=== PATIENT | male | born 1970 | race Caucasian/White ===

== ENCOUNTER → 2016-04-27 | Outpatient (CLI) | payer OTHER ==
[2016-04-27 14:28] LABS: CH 31.8; CHCM 35.2; HCT 47.7 % (39.0-53.0); HDW 3.19; HGB 16.4 gm/dL (13.0-17.5); MCH 31.3 pg (25.0-35.0); MCHC 34.5 g/dL (31.0-37.0); MCV 90.7 fL (80.0-100.0); Mean Platelet Volume 6.1; RBC 5.25 m/uL (4.30-5.90); RDW 13.2 % (11.5-15.5); WBC 11.6 k/uL (3.8-10.6)
[2016-04-27 15:11] LABS: Appearance,Urine Clear (Clear); Bilirubin,Urine Negative (Negative); Glucose,Urine (UA) Negative (Negative); Ketones,Urine Negative (Negative); Leukocyte Esterase,Urine Negative (Negative); Nitrite,Urine Negative (Negative); PH, Urine 5.5 (5.0-8.0); Protein,Urine Negative (Negative); Specific Gravity,Urine 1.001 (1.001-1.035); UA Billing (MACRO vs. MICRO) CHEM; Urobilinogen,Urine <2.0 mg/dL (<2.0)
== END | disposition home or self-care (01) ==
LOC: LABWHC1 14:02
PROVIDERS: ATTEND Internal Medicine
DX: N39.0 Urinary tract infection, site not specified (principal)
CPT/HCPCS: 36415; 81003; 85027

== ENCOUNTER → 2016-05-19 | Outpatient (CLI) | payer OTHER ==
--- NOTE | 2016-05-19 16:02 | US ---
EXAMINATION TYPE: US kidneys/renal and bladder DATE OF EXAM: 05/19/2016 3:09 PM COMPARISON: NONE CLINICAL HISTORY: R10.9 Flank pain. EXAM MEASUREMENTS: Right Kidney: 9.3 x 4.9 x 6.2 cm Left Kidney: 10.5 x 5.1 x 5.4 cm cm no gross abnormaility indentified Right Kidney: No hydronephrosis or masses seen Left Kidney: No hydronephrosis or masses seen Bladder: distended Bilateral Jets seen: right jet only There is no evidence for hydronephrosis at this point in time. No nephrolithiasis is seen. No betzaida s are identified. The urinary bladder is anechoic. Bilateral ureteral jets are seen. IMPRESSION: No distinct abnormality seen.
== END | disposition home or self-care (01) ==
LOC: RADUSWWP 14:48
PROVIDERS: ATTEND Internal Medicine
DX: R10.9 Unspecified abdominal pain (principal)
CPT/HCPCS: 76770

== ENCOUNTER → 2017-01-13 | Outpatient (CLI) | payer OTHER ==
[2017-01-13 15:15] LABS: CH 31.8; CHCM 35.1; HCT 43.9 % (39.0-53.0); HGB 15.6 gm/dL (13.0-17.5); MCH 32.5 pg (25.0-35.0); MCHC 35.7 g/dL (31.0-37.0); Mean Platelet Volume 6.2; RBC 4.82 m/uL (4.30-5.90); RDW 13.2 % (11.5-15.5); WBC 6.3 k/uL (3.8-10.6)
[2017-01-13 17:32] LABS: ALT 70 U/L (21-72); AST 37 U/L (17-59); Alkaline Phosphatase 63 U/L (38-126); Anion Gap 8 mmol/L; Blood Urea Nitrogen 15 mg/dL (9-20); Calcium 9.9 mg/dL (8.4-10.2); Carbon Dioxide 26 mmol/L (22-30); Chloride 106 mmol/L (98-107); Cholesterol 209 mg/dL (<200); Glucose 77 mg/dL (74-99); HDL Cholesterol 54 mg/dL (40-60); Non-African American GFR(MDRD) >60 (>60 ml/min/1.73 sqM); Potassium 4.2 mmol/L (3.5-5.1); Sodium 140 mmol/L (137-145); Total Bilirubin 0.7 mg/dL (0.2-1.3); Total Protein 7.2 g/dL (6.3-8.2)
[2017-01-13 18:04] LABS: Prostate Specific Antigen 1.75 ng/mL (0.00-4.00)
== END | disposition home or self-care (01) ==
LOC: LABWHC1 14:41
PROVIDERS: ATTEND Internal Medicine
DX: Z00.00 Encounter for general adult medical examination without abnormal findings (principal); E78.2 Mixed hyperlipidemia
CPT/HCPCS: 36415; 80053; 80061; 82272; 84153; 84439; 84443; 85027

== ENCOUNTER → 2017-09-30 | Outpatient (CLI) | payer OTHER ==
[2017-09-30 11:43] LABS: ALT 52 U/L (21-72); AST 27 U/L (17-59); Cholesterol 128 mg/dL (<200); Creatine Kinase 85 U/L (55-170); HDL Cholesterol 43 mg/dL (40-60); LDL Cholesterol,Calculated 71 mg/dL (0-99); Triglycerides 71 mg/dL (<150)
== END | disposition home or self-care (01) ==
LOC: LABWHC1 10:19
PROVIDERS: ATTEND Internal Medicine
DX: E78.2 Mixed hyperlipidemia (principal)
CPT/HCPCS: 36415; 80061; 82550; 84450; 84460

== ENCOUNTER 2017-10-11 16:33 | Observation (INO) | payer OTHER ==
[2017-10-11] MEDS ORDERED: ASPIRIN 81 MG PO STA (17:29)
[2017-10-11] MEDS ORDERED: NITROGLYCERIN OINT 1 INCH/GM PACKET TOPICAL STA (17:29)
--- NOTE | 2017-10-11 17:32 | ED ---
Chest Pain HPI - General Chief Complaint: Chest Pain Stated Complaint: Chest tightness Time Seen by Provider: 10/11/17 17:24 Source: patient Mode of arrival: ambulatory Limitations: no limitations - History of Present Illness Initial Comments: This 47-year-old white male presents with a complaint of some midsternal and left-sided chest pain/pressure. He states that this is been intermittent over the past 3 weeks. It seems to be worse during the week and better on the weekend when he is relaxing. It is not exertionally related. He denies any shortness of breath. There is no radiation. He denies any leg pain, swelling, history of DVT, or history of PE. He denies any known previous cardiac history. He does not smoke but does drink on occasion. He does relate that his uncle had a heart attack but no other family history. He's never had a stress test. No other complaints or modifying factors. He does not have any pain currently. He saw his primary care physician today and they sent him to the ER for further evaluation and treatment. - Related Data Home Medications Medication Instructions Recorded Confirmed Aspirin EC [Ecotrin Low Dose] 81 mg PO DAILY 10/11/17 10/11/17 Atorvastatin [Lipitor] 10 mg PO DAILY 10/11/17 10/11/17 Allergies Allergy/AdvReac Type Severity Reaction Status Date / Time No Known Allergies Allergy Verified 10/11/17 17:33 Review of Systems ROS Statement: Those systems with pertinent positive or pertinent negative responses have been documented in the HPI. ROS Other: All systems not noted in ROS Statement are negative. Past Medical History Past Medical History: Hyperlipidemia History of Any Multi-Drug Resistant Organisms: None Reported Past Surgical History: No Surgical Hx Reported Past Psychological History: No Psychological Hx Reported Smoking Status: Never smoker Past Alcohol Use History: Occasional Past Drug Use History: None Reported General Exam - General Exam Comments Initial Comments: GENERAL: The patient is well nourished and well hydrated. VITAL SIGNS: Heart rate, blood pressure, respiratory rate reviewed as recorded in nurse's notes. EYES: Pupils are round and reactive. Extraocular movements are intact. No conjunctival / lid redness or swelling. ENT: No external evidence of injury, swelling, or ecchymosis. Airway is patent. Throat is clear. NECK: Nontender. No swelling or evidence of injury. No subcutaneous emphysema. Trachea is midline. No thyroid mass. HEART: Regular rate and rhythm. Good peripheral pulses. LUNGS/CHEST: Breath sounds clear and equal bilaterally. No rales, rhonchi, or wheezes. No ecchymosis, subcutaneous emphysema, or tenderness. ABDOMEN: Abdomen soft without tenderness. No palpable masses or organomegaly. No peritoneal signs. No abdominal wall swelling or ecchymosis. EXTREMITIES: No extremity tenderness. Normal muscle tone and function. No thoracolumbar tenderness. NEUROLOGIC: Sensation is grossly intact. Cranial nerve exam reveals face is symmetrical, tongue is midline, speech is clear. SKIN: No abrasions or ecchymosis is noted. No induration or masses noted. PSYCHIATRIC: Alert and oriented. Appropriate behavior and judgment. 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 All diagnostics were reviewed. An EKG was completed. The patient received aspirin as well as some Nitropaste. The EKG shows a normal sinus rhythm at a rate of [address]-T wave changes. The AR intervals 162, QRS duration is 96, and the QTC intervals 412. The patient had a chest x-ray which does not show any acute processes. The patient also had a laboratory analysis which does not show any acute abnormalities. The patient is pain-free on recheck. It is felt as though he benefit from admission to the hospital to rule out the possibility of acute coronary syndrome. He is agreeable. Case is discussed with Dr. Fairbanks and he is agreeable with admission with cardiology to consult. Disposition Clinical Impression: Unstable angina pectoris, Chest pain, Hypertension Disposition: ADMITTED IP TO THIS HOSP Condition: Good Is patient prescribed a controlled substance at d/c from ED?: No Time of Disposition: : Decision Date: 10/11/17 Decision Time: :
[2017-10-11 17:41] LABS: Basophils % (A) 0 %; Eosinophils # (A) 0.1 k/uL (0-0.7); Eosinophils % (A) 1 %; HCT 44.4 % (39.0-53.0); HGB 16.2 gm/dL (13.0-17.5); Lymphocytes # (A) 2.3 k/uL (1.0-4.8); Lymphocytes % (A) 40 %; MCH 31.4 pg (25.0-35.0); MCHC 36.6 g/dL (31.0-37.0); MCV 85.8 fL (80.0-100.0); Mean Platelet Volume 6.2; Monocytes # (A) 0.3 k/uL (0-1.0); Monocytes % (A) 6 %; Neutrophils # (A) 2.8 k/uL (1.3-7.7); Neutrophils % (A) 50 %; Platelet Count 266 k/uL (150-450); RBC 5.17 m/uL (4.30-5.90); RDW 13.5 % (11.5-15.5); WBC 5.6 k/uL (3.8-10.6)
[2017-10-11 17:54] LABS: INR 1.1 (<1.2); Partial Thromboplastin Time 24.6 sec (22.0-30.0); Prothrombin Time 10.4 sec (9.0-12.0)
[2017-10-11 18:00] LABS: Creatine Kinase 99 U/L (55-170)
[2017-10-11 18:03] LABS: ALT 57 U/L (21-72); AST 30 U/L (17-59); Albumin 4.5 g/dL (3.5-5.0); Alkaline Phosphatase 71 U/L (38-126); Anion Gap 11 mmol/L; Blood Urea Nitrogen 18 mg/dL (9-20); Calcium 9.7 mg/dL (8.4-10.2); Carbon Dioxide 24 mmol/L (22-30); Chloride 104 mmol/L (98-107); Glucose 90 mg/dL (74-99); Potassium 4.4 mmol/L (3.5-5.1); Sodium 139 mmol/L (137-145); Total Bilirubin 0.8 mg/dL (0.2-1.3)
[2017-10-11 18:12] LABS: Troponin I <0.012 ng/mL (0.000-0.034)
--- NOTE | 2017-10-11 18:43 | XR ---
EXAMINATION TYPE: XR chest 2V DATE OF EXAM: 10/11/2017 COMPARISON: 12/08/2015 HISTORY: Chest pain TECHNIQUE: Frontal and lateral views of the chest are obtained. FINDINGS: Heart and mediastinum are normal. Lungs are clear. Diaphragm is normal. Bony thorax is int act. IMPRESSION: Normal chest. No change.
[2017-10-11] MEDS ORDERED: NITROGLYCERIN SL TABS 0.4 MG TAB SUBLINGUAL PRN (19:02)
[2017-10-11] MEDS ORDERED: METOPROLOL TARTRATE 25 MG TAB PO SCH (21:00)
[2017-10-11 21:19] VITALS: BMI 29.9
[2017-10-11 23:38] LABS: Creatine Kinase 73 U/L (55-170)
[2017-10-11 23:52] LABS: Creatine Kinase MB 2.2 ng/mL (0.0-2.4); Troponin I <0.012 ng/mL (0.000-0.034)
[2017-10-12 05:25] LABS: Cholesterol 138 mg/dL (<200); HDL Cholesterol 40 mg/dL (40-60); LDL Cholesterol,Calculated 78 mg/dL (0-99); Triglycerides 102 mg/dL (<150)
[2017-10-12 05:32] LABS: Creatine Kinase 62 U/L (55-170)
[2017-10-12] MEDS: NITROGLYCERIN OINT 1 INCH/GM PACKET TOPICAL SCH (05:44)
[2017-10-12 05:45] LABS: Troponin I <0.012 ng/mL (0.000-0.034)
[2017-10-12 08:15] VITALS: RESP 16; TEMP 98.1
[2017-10-12] MEDS ORDERED: ASPIRIN 81 MG PO SCH (09:00)
[2017-10-12] MEDS ORDERED: ENOXAPARIN 40 MG/0.4 ML SYRINGE SQ SCH (09:00)
[2017-10-12] MEDS ORDERED: ASPIRIN 325 MG TAB PO SCH (09:00)
[2017-10-12] MEDS ORDERED: ATORVASTATIN 10 MG TAB PO SCH (09:00)
--- NOTE | 2017-10-12 12:17 | P.CRDCN ---
History of Present Illness History of present illness: Mr. Salguero is a pleasant 47-year-old male past medical history significant for dyslipidemia. He denies history of coronary artery disease, hypertension or diabetes mellitus. We've been asked to see him for complaints of chest pain over the previous 2 weeks. It has been intermittent pain and pressure in mid-sternal region radiating to left precordial region. Pain is usually while at work. 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 Associated with dizziness at times. Denies shortness of breath, palpitations, nausea, vomiting or diaphoresis. No radiation of the pain to back, neck, arms or jaw. He states he's been under a lot of stress lately with recent refinancing of his condo anything to move out secondary to home improvements. EKG reveals sinus mechanism with no acute ST or T-wave abnormalities. Telemetry tracings have been unremarkable. Chest x-ray is negative for acute cardiopulmonary process. Laboratory data reviewed, hemoglobin 16.2, platelets 266, sodium 139, potassium 4.4, magnesium 2.0, creatinine 0.9, cardiac enzymes negative 3, LDL 78. Current medications include atorvastatin 10 mg daily and aspirin 81 mg daily. Review of Systems At the time of my exam: CONSTITUTIONAL: Denies fever. Denies chills. EYES: Denies blurred vision. Denies vision changes. Denies eye pain. EARS, NOSE, MOUTH & THROAT: Denies headache. Denies sore throat. Denies ear pain. CARDIOVASCULAR: Denies chest pain. Denies shortness of breath. Denies orthopnea. Denies PND. Denies palpitations. RESPIRATORY: Denies cough. GASTROINTESTINAL: Denies abdominal pain. Denies diarrhea. Denies constipation. Denies nausea. Denies vomiting. MUSCULOSKELETAL: Denies myalgias. INTEGUMENTARY: Denies pruitis. Denies rash. NEUROLOGIC: Denies numbness. Denies tingling. Denies weakness. PSYCHIATRIC: Denies anxiety. Denies depression. ENDOCRINE: Denies fatigue. Denies weight change. Denies polydipsia. Denies polyurina. GENITOURINARY: Denies burning, hematuria or urgency with micturation. HEMATOLOGIC: Denies history of anemia. Denies bleeding. Past Medical History Past Medical History: Hyperlipidemia History of Any Multi-Drug Resistant Organisms: None Reported Past Surgical History: No Surgical Hx Reported Smoking Status: Never smoker - Past Family History Father Family Medical History: Hypertension Additional Family Medical History / Comment(s): kidney transplant Mother Additional Family Medical History / Comment(s): afib Medications and Allergies Home Medications Medication Instructions Recorded Confirmed Type Aspirin EC [Ecotrin Low Dose] 81 mg PO DAILY 10/11/17 10/11/17 History Atorvastatin [Lipitor] 10 mg PO DAILY 10/11/17 10/11/17 History Allergies Allergy/AdvReac Type Severity Reaction Status Date / Time No Known Allergies Allergy Verified 10/11/17 17:33 Physical Exam Vitals: Vital Signs Temp Pulse Pulse Pulse Resp BP BP 10/12/17 08:00 98.1 F 88 16 120/74 10/12/17 04:00 97.5 F L 61 18 110/63 10/12/17 00:00 97.7 F 62 18 105/67 10/11/17 21:02 98.1 F 75 137/79 10/11/17 21:00 18 10/11/17 20:29 97.8 F 78 18 116/78 10/11/17 19:35 98.9 F 63 18 141/79 10/11/17 17:23 71 73 18 150/93 10/11/17 16:41 98.3 F 71 16 143/100 Pulse Ox 10/12/17 08:00 94 L 10/12/17 04:00 96 10/12/17 00:00 96 10/11/17 21:02 96 10/11/17 21:00 10/11/17 20:29 98 10/11/17 19:35 98 10/11/17 17:23 96 10/11/17 16:41 97 Intake and Output 10/11/17 10/12/17 10/12/17 22:59 06:59 14:59 Other: # Voids 1 1 Weight 89.3 kg Blood pressure 120/74 radiate afebrile maintaining oxygen saturation on room air GENERAL: This is a 47-year-old male in no apparent distress at the time of my examination. HEENT: Head is atraumatic, normocephalic. Pupils are equal, round. Sclerae anicteric. Conjunctivae are clear. Mucous membranes of the mouth are moist. Neck is supple. There is no jugular venous distention. No carotid bruit is heard. LUNGS: Clear to auscultation no wheezes, rales or rhonchi. No chest wall tenderness is noted on palpation or with deep breathing. HEART: Regular rate and rhythm without murmurs, rubs or gallops. S1 and S2 heard. ABDOMEN: Soft, nontender. Bowel sounds are heard. No organomegaly noted. EXTREMITIES: No evidence of peripheral edema and no calf tenderness noted. VASCULAR: Radial and dorsalis pedis pulses palpated, no evidence of clubbing. NEUROLOGIC: Patient is awake, alert and oriented x3. Results 10/11/17 17:20 10/11/17 17:20 Cardiac Enzymes 10/11/17 10/11/17 10/11/17 Range/Units 17:20 17:20 23:05 AST 30 (17-59) U/L CK-MB (CK-2) 3.0 H* 2.2 (0.0-2.4) ng/mL Troponin I <0.012 <0.012 (0.000-0.034) ng/mL 10/12/17 Range/Units 04:55 AST (17-59) U/L CK-MB (CK-2) 2.0 (0.0-2.4) ng/mL Troponin I <0.012 (0.000-0.034) ng/mL Coagulation 10/11/17 Range/Units 17:20 PT 10.4 (9.0-12.0) sec APTT 24.6 (22.0-30.0) sec Lipids 10/12/17 Range/Units 04:55 Triglycerides 102 (<150) mg/dL Cholesterol 138 (<200) mg/dL HDL Cholesterol 40 (40-60) mg/dL CBC 10/11/17 Range/Units 17:20 WBC 5.6 (3.8-10.6) k/uL RBC 5.17 (4.30-5.90) m/uL Hgb 16.2 (13.0-17.5) gm/dL Hct 44.4 (39.0-53.0) % Plt Count 266 (150-450) k/uL Comprehensive Metabolic Panel 10/11/17 Range/Units 17:20 Sodium 139 (137-145) mmol/L Potassium 4.4 (3.5-5.1) mmol/L Chloride 104 (98-107) mmol/L Carbon Dioxide 24 (22-30) mmol/L BUN 18 (9-20) mg/dL Creatinine 0.90 (0.66-1.25) mg/dL Glucose 90 (74-99) mg/dL Calcium 9.7 (8.4-10.2) mg/dL AST 30 (17-59) U/L ALT 57 (21-72) U/L Alkaline Phosphatase 71 (38-126) U/L Total Protein 7.0 (6.3-8.2) g/dL Albumin 4.5 (3.5-5.0) g/dL Current Medications Generic Name Dose Route Start Last Admin Trade Name Freq PRN Reason Stop Dose Admin Aspirin 81 mg 10/12/17 09:00 Aspirin PO DAILY [facility] Atorvastatin Calcium 10 mg 10/12/17 09:00 Lipitor PO DAILY [facility] Enoxaparin Sodium 40 mg 10/12/17 09:00 Lovenox SQ DAILY [facility] Metoprolol Tartrate 25 mg 10/11/17 21:00 10/11/17 21:20 Lopressor PO 25 mg BID [facility] Administration Nitroglycerin 1 inch 10/12/17 00:00 10/12/17 05:44 Nitro-Bid Oint TOPICAL Not Given Q6HR [facility] Nitroglycerin 0.4 mg 10/11/17 19:02 Nitrostat SUBLINGUAL Q5M PRN Chest Pain Intake and Output 10/11/17 10/12/17 10/12/17 22:59 06:59 14:59 Other: # Voids 1 1 Weight 89.3 kg 10/11/17 17:20 10/11/17 17:20 Assessment and Plan Assessment: ASSESSMENT 1. Chest pain, atypical. An acute coronary event has been ruled out with no EKG evidence of ischemia and negative cardiac enzymes. 2. Dyslipidemia PLAN Obtain 2-D echocardiogram and Doppler study to assess cardiac structure and function. Perform stress echocardiogram to assess for stress induced cardiac ischemia. Stress test is normal he is stable from a cardiac perspective. Follow-up with Dr. Monroy in 2-3 weeks. Thank you kindly for this consultation. Nurse Practitioner note has been reviewed, I agree with a documented findings and plan of care. Patient was seen and examined.
--- NOTE | 2017-10-12 13:19 | P.STRESS ---
- Stress Test Note Stress Test Results/Findings: Exam Performed: stress echo exercise Exam Date: 10/12/17 Reason for Exam: Chest Pain Height: 5 ft 8 in Weight: 89.3 kg Protocol: Echo Stress Stage: 3 Duration of Exercise: 9:07 Resting Heart Rate: 72 Resting Blood Pressure: 131/63 Maximum Achieved Heart Rate: 158 Maximum Achieved Blood Pressure: 157/77 85% PMHR: 145 100% PMHR: 171 METS: 10.5 Technologist Comment: Stress Test Results/Findings: This is a 47-year-old gentleman with history of apical ischemia and family history being evaluated for chest pains. Stress data: Baseline EKG showed sinus rhythm with normal [place] and chronic constipation. Blood pressure at rest is 131/63 with pulse rate of 72. Patient walked on the Alan protocol for 9 minutes achieving a maximal rate of 158 with a blood pressure 138/70. Patient did not express any chest pain. Echo data: Baseline echo images showed normal wall motion and thickening. Exercise echo images showed augmentation of wall motion and thickening in all segments. Final impression: #1. Negative stress test #2. Negative stress echo. #3. Patient did not express any chest pain #4. No arrhythmias detected.
[2017-10-12 16:09] VITALS: BP 119/77; PULSE 68
--- NOTE | 2017-10-13 14:00 | ECHOF ---
Referral Reason: MEASUREMENTS -------- HEIGHT: 172.7 cm WEIGHT: 88.9 kg BP: 110/63 RVIDd: 2.7 cm (< 3.3) IVSd: 1.4 cm (0.6 - 1.1) LVIDd: 3.8 cm (3.9 - 5.3) LVPWd: 1.3 cm (0.6 - 1.1) IVSs: 1.6 cm LVIDs: 3.1 cm LVPWs: 1.2 cm LA Diam: 3.4 cm (2.7 - 3.8) LAESV Index (A-L): 13.87 ml/m Ao Diam: 3.6 cm (2.0 - 3.7) AV Cusp: 2.7 cm (1.5 - 2.6) LA Diam: 3.3 cm (2.7 - 3.8) MV EXCURSION: 18.395 mm (> 18.000) MV EF SLOPE: 51 mm/s (70 - 150) EPSS: 0.4 cm MV E Heber: 0.47 m/s MV DecT: 242 ms MV A Heber: 0.57 m/s MV E/A Ratio: 0.83 RAP: 5.00 mmHg RVSP: 19.08 mmHg FINDINGS -------- Sinus rhythm. This was a technically good study. The left ventricular size is normal. There is mild concentric left ventricular hypertrophy. Overa ll left ventricular systolic function is normal with, an EF between 55 - 60 %. The right ventricle is normal in size. The left atrial size is normal. Normal LA size by volume 22+/-6 ml/m2. The right atrial size is normal. The aortic valve is trileaflet, and appears structurally normal. No aortic stenosis or regurgitation. Mild mitral regurgitation is present. Mild tricuspid regurgitation present. There is no evidence of pulmonary hypertension. The right v entricular systolic pressure, as measured by Doppler, is 19.08mmHg. There is no pulmonic regurgitation present. The aortic root size is normal. There is no pericardial effusion. CONCLUSIONS -------- 1. The left ventricular size is normal. 2. There is mild concentric left ventricular hypertrophy. 3. Overall left ventricular systolic function is normal with, an EF between 55 - 60 %. 4. The right ventricle is normal in size. 5. The left atrial size is normal. 6. The right atrial size is normal. 7. The aortic valve is trileaflet, and appears structurally normal. No aortic stenosis or regurgitati on. 8. Mild mitral regurgitation is present. 9. Mild tricuspid regurgitation present. 10. There is no evidence of pulmonary hypertension. 11. The right ventricular systolic pressure, as measured by Doppler, is 19.08mmHg. 12. There is no pulmonic regurgitation present. 13. The aortic root size is normal. 14. There is no pericardial effusion. WASTEWATER SUPERVISOR: Manju Lu RDCS
--- NOTE | 2017-10-15 19:58 | HP ---
HISTORY AND PHYSICAL DATE OF ADMISSION: 10/11/2017 HISTORY OF PRESENT ILLNESS: This is a 47-year-old who was seen in my office on 10/11/2017 with a complaint of anterior chest pain. It was feeling like a tightness in the substernal area and this was coming and going for the past couple of weeks and there was no associated diaphoresis or dyspnea, but it was very uncomfortable and it was like a tightness in the chest, especially in the midsternal area and as this was persisting and he was getting more frequently, the patient came to my office. There was no past history of coronary artery disease and the patient also has a strong family history of heart disease, so patient was referred to the emergency room. In the ER, his EKG was within normal limits and chest x-ray was negative and cardiac enzymes also within normal limits. CBC showed a WBC count of 5.6, hemoglobin 16.2, and platelet count 266,000. Cholesterol was 138 and troponin was less than 0.012. He has a strong family history of heart disease. Patient was admitted to the hospital for further evaluation and treatment. PAST MEDICAL HISTORY: Reveals that he has hyperlipidemia and the patient has been on Lipitor 10 mg p.o. daily and he also has been on aspirin 81 mg p.o. daily. SOCIAL HISTORY: He does not smoke and he drinks alcohol occasionally. ALLERGIES: He has no known drug allergies. FAMILY HISTORY: Positive for heart disease. His mother has chronic atrial fibrillation and father had coronary artery disease and also kidney disease and he has had a kidney transplant. REVIEW OF SYSTEMS: Patient denies any headache. Appetite has been good. Bowels regular. He has chest pain as mentioned before. He has no abdominal pain. He has no polyuria or dysuria. He has no neurological symptoms. PHYSICAL EXAMINATION: Reveals a 47-year-old white male, well nourished and well developed. He is alert and oriented. He is in no acute distress. Still having chest tightness and discomfort on and off. He has no abdominal pain. He has no polyuria or dysuria. He has no neurological symptoms. Physical examination reveals a 47-year-old white male, well nourished and well developed. He is alert and oriented. There is no jaundice. There is no generalized lymphadenopathy. No petechia or bruises. Pulse 72 per minute and regular, blood pressure 150/93 in the ER and respirations 18 per minute, temperature 98.3. Examination of HEENT negative. NECK: Supple. There is no jugular venous distention. There is no goiter. There is no carotid bruit. Heart is in sinus rhythm. LUNGS: Clear to auscultation and percussion. ABDOMEN: Soft and nontender. There is no mass palpable. Examination of the lower extremities reveal no pitting edema. Neurologic examination does not reveal localizing signs. IMPRESSION: 1. Chest pain and possibly atypical, rule out coronary artery disease with unstable angina. 2. Hyperlipidemia. PLAN: Patient will be admitted to the hospital. His heart will be monitored with telemetry and we will also get serial EKGs and cardiac enzymes and will have [facility] see the patient in consultation. Prognosis guarded. The diagnosis, prognosis and therapeutic plans were discussed in detail with the patient today. MAGDALENA / ZHEN: [id number] /
--- NOTE | 2017-10-16 00:37 | DS ---
DISCHARGE SUMMARY DATE OF SERVICE: 10/11/2017. DATE OF DISCHARGE: 10/12/2017. DISCHARGE DIAGNOSES: 1. Chest pain, atypical. 2. Hyperlipidemia. HISTORY: This is a 47-year-old white male who presented himself with anterior chest pain, feeling of chest tightness in the midsternal area. The patient was evaluated in the ER. His EKG was normal. Chest x-ray was also normal. Cardiac enzymes were within normal limits. However, the patient has a strong family history of heart disease and because of the recurrent persistent midsternal chest pain, patient was admitted to the hospital for further evaluation and treatment. For details of the physical examination at the time of admission, please refer to the history and physical. HOSPITAL COURSE: The patient was admitted to the hospital and his heart was monitored with telemetry. He had serial EKGs and cardiac enzymes. They were all within normal limits. He was seen by Dr. Monroy for cardiac consultation. The patient also had a stress test and stress echocardiogram. They were negative. The patient's vital signs were normal. Dr. Monroy recommended that he may be discharged because the stress test and stress echo was within normal limits. The patient also was asymptomatic in the hospital. The patient was discharged home on 10/12/2017 and detailed discharge instructions were given. He was advised to continue on with his previous home medications. He will be seen in my office for followup in a week's time and also he will be followed by Dr. Monroy for cardiac followup. MMODL / IJN: [id number] /
--- NOTE | 2017-10-16 15:38 | ECHOS ---
Stress Test Results/Findings: Exam Performed: stress echo exercise Exam Date: 10/12/17 Reason for Exam: Chest Pain Height: 5 ft 8 in Weight: 89.3 kg Protocol: Echo Stress Stage: 3 Duration of Exercise: 9:07 Resting Heart Rate: 72 Resting Blood Pressure: 131/63 Maximum Achieved Heart Rate: 158 Maximum Achieved Blood Pressure: 157/77 85% PMHR: 145 100% PMHR: 171 METS: 10.5 Technologist Comment: Stress Test Results/Findings: This is a 47-year-old gentleman with history of apical ischemia and family history being evaluated for chest pains. Stress data: Baseline EKG showed sinus rhythm with normal [place] and chronic constipation. Blood pressure at rest is 131/63 with pulse rate of 72. Patient walked on the Alan protocol for 9 minutes achieving a maximal rate of 158 with a blood pressure 138/70. Patient did not express any chest pain. Echo data: Baseline echo images showed normal wall motion and thickening. Exercise echo images showed augmentation of wall motion and thickening in all segments. Final impression: #1. Negative stress test #2. Negative stress echo. #3. Patient did not express any chest pain #4. No arrhythmias detected. [facility]
== END 2017-10-12 17:04 | disposition home or self-care (01) ==
LOC: EC 16:33 → 3OBS 19:01
PROVIDERS: ADMIT Internal Medicine; ATTEND Internal Medicine
DX: R07.89 Other chest pain (principal); E78.5 Hyperlipidemia, unspecified; R03.0 Elevated blood-pressure reading, without diagnosis of hypertension; R42 Dizziness and giddiness; Z79.82 Long term (current) use of aspirin; Z79.899 Other long term (current) drug therapy; Z84.1 Family history of disorders of kidney and ureter; Z82.49 Family history of ischemic heart disease and other diseases of the circulatory system
CPT/HCPCS: 99285 ×2; 36415; 93005; 93306; 93351; 80061; 80053; 82550 ×2; 82553 ×2; 83735; 84484 ×2; 85025; 85610; 85730; 71046; G0378 ×2

== ENCOUNTER → 2018-07-28 | Outpatient (CLI) | payer OTHER ==
[2018-07-28 16:50] LABS: LDL Cholesterol,Calculated 105.2 mg/dL (0.0-131.0); VLDL Calculation 22.8 mg/dL (5.00-40.00)
== END | disposition home or self-care (01) ==
LOC: LABWHC1 10:15
PROVIDERS: ATTEND Internal Medicine
DX: E78.2 Mixed hyperlipidemia (principal)
CPT/HCPCS: 36415; 80061

== ENCOUNTER 2019-03-11 07:26 | Day surgery (SDC) | payer BC ==
[2019-03-06 15:27] VITALS: BMI 28.1
[~2019-03-11 07:26] MED LIST: LIDOCAINE 1% 20 ML VIAL (10MG/ML) FOR IV START INTRADERMA PRN
[2019-03-11 07:55] VITALS: RESP 18; TEMP 97.8
[2019-03-11] MEDS: LACTATED RINGERS 1,000 ML IV SCH ×2 (08:00→08:22)
[2019-03-11] MEDS ORDERED: PROPOFOL 10 MG/ML 20 ML VIAL IV ONE (08:24)
[2019-03-11] MEDS ORDERED: LIDOCAINE 1% INJ 10MG/ML (20 ML MDV) ONE (08:24)
--- NOTE | 2019-03-11 08:27 | P.GSHP ---
History of Present Illness H&P Date: 03/11/19 Chief Complaint: Screening colonoscopy This a 49-year-old male who presents today for screening colonoscopy. Patient denies any significant GI complaints. 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 Past Anesthesia/Blood Transfusion Reactions: No Reported Reaction Smoking Status: Never smoker - Past Family History Father Family Medical History: Hypertension Additional Family Medical History / Comment(s): kidney transplant Mother Family Medical History: AFIB Additional Family Medical History / Comment(s): afib Medications and Allergies Home Medications Medication Instructions Recorded Confirmed Type Aspirin EC [Ecotrin Low Dose] 81 mg PO DAILY 10/11/17 03/06/19 History Atorvastatin [Lipitor] 10 mg PO DAILY 10/11/17 03/11/19 History Ergocalciferol [Vitamin D2] 50,000 unit PO WE 03/06/19 03/11/19 History Allergies Allergy/AdvReac Type Severity Reaction Status Date / Time No Known Allergies Allergy Verified 03/06/19 15:17 Surgical - Exam Vital Signs Temp Pulse Resp BP Pulse Ox 97.8 F 90 18 137/75 98 03/11/19 07:53 03/11/19 07:53 03/11/19 07:53 03/11/19 07:53 03/11/19 07:53 - General well developed, well nourished, no distress - Eyes PERRL - ENT normal pinna - Neck no masses - Respiratory normal expansion - Cardiovascular Rhythm: regular - Abdomen Abdomen: soft, non tender Assessment and Plan Assessment: We'll perform screening colonoscopy
--- NOTE | 2019-03-11 08:41 | P.OP ---
Date of Procedure: 03/11/19 Preoperative Diagnosis: Screening colonoscopy Postoperative Diagnosis: External hemorrhoids Procedure(s) Performed: Colonoscopy Anesthesia: MAC Surgeon: Casey Thorne Pathology: none sent Condition: stable Disposition: PACU Description of Procedure: The patient's placed on the endoscopy table in the lateral position. He received IV sedation. Digital rectal exam was performed which revealed external hemorrhoids. The flexible colonoscope was then placed patient anus and passed throughout the entire colon. The ileocecal valve was visualized. The cecum, ascending and transverse colon appeared normal. The descending; appeared normal. Scope summer back the rectum and this appeared normal. Scope withdrawn through the anus and some minimal internal hemorrhoids noted. There were significant external hemorrhoids.
[2019-03-11 08:43] VITALS: BP 120/77; PULSE 78
== END 2019-03-11 09:07 | disposition home or self-care (01) ==
LOC: ORWHC2ENDO 07:26
PROVIDERS: ATTEND Surgery
DX: Z12.11 Encounter for screening for malignant neoplasm of colon (principal); K64.4 Residual hemorrhoidal skin tags; E78.5 Hyperlipidemia, unspecified; F41.9 Anxiety disorder, unspecified; Z85.820 Personal history of malignant melanoma of skin; Z94.0 Kidney transplant status; Z79.82 Long term (current) use of aspirin; Z79.899 Other long term (current) drug therapy; Z82.49 Family history of ischemic heart disease and other diseases of the circulatory system
CPT/HCPCS: J2001; J2704; G0121

== ENCOUNTER → 2020-07-24 | Outpatient (CLI) | payer BC ==
--- NOTE | 2020-07-24 16:00 | FL ---
EXAMINATION TYPE: FL barium swallow w video DATE OF EXAM: 07/24/2020 COMPARISON: NONE HISTORY: Dysphasia TECHNIQUE: Fluoroscopy. FINDINGS: Fluoroscopic guidance was provided for the procedure performed in conjunction with the [facility] pathology department. Please see complete report forthcoming from the Speech Pathology departmen t. Various consistencies from thin liquid to solids were administered. Fluoroscopy time 56 seconds. Number of images: 0. No aspiration was evident. There was transient penetration with thin liquids. No significant pooling was observed in the vallecula. There was normal propulsion of the bolus. IMPRESSION: 1. Transient penetration with thin liquids. 2. No aspiration evident.
== END | disposition home or self-care (01) ==
LOC: RADFLMAIN 10:50
PROVIDERS: ATTEND Otolaryngology
DX: R13.10 Dysphagia, unspecified (principal)
CPT/HCPCS: 74230

== ENCOUNTER → 2020-07-30 | Outpatient (CLI) | payer BC ==
--- NOTE | 2020-07-30 10:59 | FL ---
ESOPHOGRAM. HISTORY: Dysphagia Esophagram was performed per the air contrast technique. The patient swallowed barium and effervesce nt crystals without difficulty or delay. Esophageal peristalsis and motility appear to be within normal limits. There is luminal narrowing involving the distal esophagus with sliding-type hiatal hernia. This could reflect peptic stricture however underlying lesion is not excluded and direct observation. Subsequently single contrast cervical esophagram was performed which fails demonstrate evidence for a spiration penetration or mass. IMPRESSION: There is luminal narrowing involving the distal esophagus with small reducible sliding-ty pe hiatal hernia. This could reflect peptic stricture however underlying lesion is not excluded and d irect observation.
== END | disposition home or self-care (01) ==
LOC: RADUSWWP 08:52
PROVIDERS: ATTEND Otolaryngology
DX: K22.2 Esophageal obstruction (principal); K44.9 Diaphragmatic hernia without obstruction or gangrene
CPT/HCPCS: 74220

== ENCOUNTER → 2023-12-06 | Outpatient (CLI) | payer BC ==
--- NOTE | 2024-01-02 16:38 | MR ---
Patient: Johnny Salguero J Ordering Physician: Unknown, Unknown ID: [id number] Phone, Pager: Phone: N /A Pager: N/A : [phone] Age/Gender: 53Y, M Primary Location: N/A Procedure: MRI PROSTATE W/WO C ONTRAST Study Date: 12/06/2023 6:06:01 AM r EXAMINATION TYPE: MR Prostate wo/w con DATE OF EXAM: 12/16/2023 8:34 AM COMPARISON: None. CLINICAL INDICATION: Elevated PSA TECHNIQUE: Multi-planar, multi-sequence imaging of the pelvis is performed prior to and following the uncomplicated administration of bolus intravenous gadolinium. CONTRAST: 9 cc Interpretive Criteria: PI-RADS v2.1 SERUM PSA: 04-03-23 = 4.88 11-10-22 = 5.70 SURGICAL PATHOLOGY: Benign biopsy 04/01/2022 FINDINGS: Prostatic dimensions: 4.5 x 5.7 x 3.1 cm. "Bullet" Volume:52.04 (PSA density=0.09 ng/mL/mL) CENTRAL GLAND (Central and Transition Zones/CZ+TZ): Multiple bilateral, heterogenous appearing hypertrophic stromal nodules, without suspicious lesion. M edian lobe hypertrophy with protrusion into the base of the bladder. (PI-RADS 2) PERIPHERAL ZONE (PZ): No evidence of masslike abnormality, or localized perfusional hypervascularity, to further suggest a focus of clinically significant prostate cancer. (PI-RADS 2) SEMINAL VESICLES (SV): Symmetric and unremarkable. PERIPROSTATIC TISSUES: Unremarkable. LYMPH NODES: No enlarged pelvic lymph node. REMAINING PELVIS: Bladder wall is within normal limits given distention. No abnormal free or organized intrapelvic fluid collection. No pathologic bowel dilation or mural thickening. Left fat containing inguinal hernia OSSEOUS STRUCTURES: No suspicious osseous abnormality. IMPRESSION: 1. No specific features for high-risk prostate cancer. Maximum PI-RADS score: 2. 2. Moderate BPH, estimated gland volume 52.04 mL. 3. No suspicious osseous lesion. No lymphadenopathy. No evidence of prostate adenocarcinoma involving the periprostatic tissues.
== END | disposition home or self-care (01) ==
LOC: RADMRIMAIN 06:48
PROVIDERS: ATTEND Urology
DX: N40.0 Benign prostatic hyperplasia without lower urinary tract symptoms (principal); R97.20 Elevated prostate specific antigen [PSA]
CPT/HCPCS: 72197; A9585

== ENCOUNTER 2024-10-08 09:11 | Day surgery (SDC) | payer BC ==
--- NOTE | 2024-10-08 08:53 | P.HPIHPCON ---
History of Present Illness H&P Date: 10/08/24 Chief Complaint: Elevated PSA This is a 54-year-old male with history of elevated PSA at 11.4, his PSA has been rising over the past couple years. He underwent a prostate biopsy back in 2021 which was negative, he also underwent a prostate MRI in November 2023 that was negative. He is currently in urinary retention has failed multiple trial of void. Discussed with him the option of a TURP. But did discuss with him prior to proceeding with that I would recommend proceeding with a repeat prostate biopsies to rule out malignancy. He is aware of the risk which include but not limited to bleeding, infection Consent for Procedure: I have explained the operation/procedure to the patient, including the risks, benefits, side effects, alternative therapies (including not receiving the proposed treatment or service), the likelihood of the patient achieving his/her goals, and potential recuperation problems for the procedure/sedation/analgesia, as well as any blood products, if indicated. I also explained to the patient the risks, benefits and side effects of the alternatives, as well as the risks related to not receiving the proposed procedure, care, treatment, or services. 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 Past Anesthesia/Blood Transfusion Reactions: No Reported Reaction Smoking Status: Never smoker - Past Family History Father Family Medical History: Hypertension Additional Family Medical History / Comment(s): kidney transplant Mother Family Medical History: AFIB Additional Family Medical History / Comment(s): afib Medications and Allergies Home Medications Medication Instructions Recorded Confirmed Type Aspirin EC [Ecotrin Low Dose] 81 mg PO DAILY 10/11/17 10/04/24 History Atorvastatin [Lipitor] 10 mg PO W/SUPPER 10/11/17 10/04/24 History Escitalopram [Lexapro] 5 mg PO DAILY 09/21/24 10/04/24 History Ibuprofen [Advil] 400 mg PO DAILY PRN 09/21/24 10/04/24 History Omeprazole 20 mg PO DAILY 09/21/24 10/04/24 History Tamsulosin [Flomax] 0.4 mg PO W/SUPPER 09/21/24 10/04/24 History Allergies Allergy/AdvReac Type Severity Reaction Status Date / Time No Known Allergies Allergy Verified 10/04/24 12:51 Surgical - Exam - General no distress, no pain - Eyes normal ocular movement, no pale - ENT normal nares, normal mucosa - Respiratory normal expansion, normal respiratory effort Assessment and Plan Assessment: OR for transrectal ultrasound of the prostate
[~2024-10-08 09:11] MED LIST changes: +GENTAMICIN 120 MG in SODIUM CHLORIDE 0.9% 100 ML IVPB PRN; +LIDOCAINE 1% (10MG/ML) FOR IV START INTRADERMA PRN; -LIDOCAINE 1% 20 ML VIAL (10MG/ML) FOR IV START INTRADERMA PRN
[2024-10-08] MEDS: IV FLUID CONTINUATION 1,000 ML IV ONE (09:41)
[2024-10-08 09:47] VITALS: RESP 16; TEMP 98.2
[2024-10-08] MEDS: LACTATED RINGERS 1,000 ML IV SCH (10:03)
[2024-10-08] MEDS: GENTAMICIN 40 MG/ML 2 ML VIAL IM ONE (10:37)
[2024-10-08] MEDS ORDERED: fentaNYL (PF) 50 MCG/ML 2 ML AMP ONE (10:57)
[2024-10-08] MEDS ORDERED: MIDAZOLAM 2 MG/2 ML VIAL ONE (10:57)
[2024-10-08] MEDS ORDERED: PROPOFOL 10 MG/ML 20 ML VIAL IV ONE (10:57)
--- NOTE | 2024-10-08 11:28 | P.OP ---
Date of Procedure: 10/08/24 Preoperative Diagnosis: Elevated PSA Postoperative Diagnosis: Same Procedure(s) Performed: Transrectal ultrasound biopsy of the prostate Anesthesia: MAC Surgeon: Mark Saleh Estimated Blood Loss (ml): 0 Pathology: other (Prostate biopsy) Condition: stable Disposition: PACU Indications for Procedure: This is a 54-year-old male with history of elevated PSA at 11.4, his PSA has been rising over the past couple years. He underwent a prostate biopsy back in 2021 which was negative, he also underwent a prostate MRI in November 2023 that was negative. He is currently in urinary retention has failed multiple trial of void. Discussed with him the option of a TURP. But did discuss with him prior to proceeding with that I would recommend proceeding with a repeat prostate biopsies to rule out malignancy. He is aware of the risk which include but not limited to bleeding, infection Description of Procedure: The patient was taken to the operating room and placed in the left lateral decubitus position. The [place] transrectal ultrasound probe was placed intrarectally. The prostate was imaged in both the axial and sagittal planes,L. Using the Biopsy gun, 12 biopsies of the peripheral zone were obtained utilizing a standard template. Once the procedure was completed, the ultrasound probe was removed. The patient tolerated the procedure well was taken to the recovery room stable condition
[2024-10-08 11:46] VITALS: BP 112/78; PULSE 77
== END 2024-10-08 11:57 | disposition home or self-care (01) ==
LOC: OR 09:11
PROVIDERS: ATTEND Urology
DX: N40.1 Benign prostatic hyperplasia with lower urinary tract symptoms (principal); N41.0 Acute prostatitis; N41.1 Chronic prostatitis; R33.8 Other retention of urine; E78.5 Hyperlipidemia, unspecified; Z85.51 Personal history of malignant neoplasm of bladder; Z85.820 Personal history of malignant melanoma of skin; Z79.899 Other long term (current) drug therapy
CPT/HCPCS: 55700; 88305; J2250; J1580; J3010; J2704

== ENCOUNTER → 2024-10-17 | Outpatient (CLI) | payer BC ==
[2024-10-17 21:19] LABS: Appearance,Urine Clear (Clear); Bilirubin,Urine Negative (Negative); Blood,Urine Small (Negative); Color,Urine Yellow (Yellow); Ketones,Urine Negative (Negative); Nitrite,Urine Negative (Negative); PH, Urine 7.5; Specific Gravity,Urine 1.011 (1.001-1.030); Urobilinogen,Urine 0.2 E.U./DL
[2024-10-17 21:28] LABS: Bacteria,Urine None Seen (None Seen)
== END | disposition home or self-care (01) ==
LOC: LABWHC1 12:32
PROVIDERS: ATTEND Urology
DX: Z01.812 Encounter for preprocedural laboratory examination (principal); N40.1 Benign prostatic hyperplasia with lower urinary tract symptoms
CPT/HCPCS: 81001; 87086

== ENCOUNTER 2024-10-22 08:00 | Day surgery (SDC) | payer BC ==
[2024-10-16 12:04] VITALS: BMI 29.3
--- NOTE | 2024-10-18 12:41 | P.HPIHPCON ---
History of Present Illness H&P Date: 10/18/24 Chief Complaint: BPH, urinary retention This is a 54-year-old male with history of BPH, urinary retention. He has failed multiple trial of voids. Underwent a cystoscopy that showed evidence of an occlusive prostate. Of note he has a history of chronically elevated PSA, rodriguez s underwent 2 previous prostate biopsies and a prostate MRI that was within normal limits, last biopsy was this month. Discussed with him an option of a TURP. He is aware of the risk which include but not limited to bleeding, infection, urinary incontinence, retrograde ejaculation. Discussed the risk of persistent retention even with a TURP. He understood all risk and agreed to proceed Consent for Procedure: I have explained the operation/procedure to the patient, including the risks, benefits, side effects, alternative therapies (including not receiving the propo sed treatment or service), the likelihood of the patient achieving his/her goals, and potential recuperation problems for the procedure/sedation/analgesia, as well as any blood products, if indicated. I also explained to the patient the risks, benefits and side effects of the alternatives, as well as the risks related to not receiving the proposed procedure, care, treatment, or services. Past Medical History Past Medical History: Cancer, GERD/Reflux, Hyperlipidemia, Prostate Disorder Additional Past Medical History / Comment(s): Enlarged prostate, hx melanoma/skin cancer, bladder not emptying, recent hospitalization for acute renal failure/urinary retention, has spain catheter. History of Any Multi-Drug Resistant Organisms: None Reported Past Surgical History: No Surgical Hx Reported Additional Past Surgical History / Comment(s): Melanoma removed from cheek, transrectal ultrasound and biopsy. Past Anesthesia/Blood Transfusion Reactions: No Reported Reaction Smoking Status: Never smoker - Past Family History Father Family Medical History: Hypertension Additional Family Medical History / Comment(s): Kidney transplant. Mother Family Medical History: AFIB Additional Family Medical History / Comment(s): afib Medications and Allergies Home Medications Medication Instructions Recorded Confirmed Type Aspirin EC [Ecotrin Low Dose] 81 mg PO DAILY 10/11/17 10/16/24 History Atorvastatin [Lipitor] 10 mg PO W/SUPPER 10/11/17 10/16/24 History Escitalopram [Lexapro] 5 mg PO PC-LUNCH 09/21/24 10/16/24 History Ibuprofen [Advil] 400 mg PO DAILY PRN 09/21/24 10/16/24 History Omeprazole 20 mg PO PC-LUNCH 09/21/24 10/16/24 History Tamsulosin [Flomax] 0.4 mg PO W/SUPPER 09/21/24 10/16/24 History Allergies Allergy/AdvReac Type Severity Reaction Status Date / Time No Known Allergies Allergy Verified 10/16/24 11:33 Surgical - Exam - General no distress, no pain - Eyes normal ocular movement, no pale - ENT normal nares, normal mucosa - Respiratory normal expansion, normal respiratory effort - Abdomen Abdomen: soft, non tender, no distended - Psychiatric oriented to time, oriented to person, oriented to place Assessment and Plan Assessment: OR for TURP
[~2024-10-22 08:00] MED LIST changes: -GENTAMICIN 120 MG in SODIUM CHLORIDE 0.9% 100 ML IVPB PRN; +HYDROmorphone 0.5 MG/0.5 ML SYRINGE IVP PRN; +fentaNYL (PF) 50 MCG/ML 2 ML AMP IV PRN
[2024-10-22] MEDS: IV FLUID CONTINUATION 1,000 ML IV ONE (08:24)
[2024-10-22] MEDS: LACTATED RINGERS 1,000 ML IV SCH (08:38)
[2024-10-22] MEDS: DEXAMETHASONE SOD PHOSPHATE 4 MG/ML 1 ML VIAL IV ONE (08:39)
[2024-10-22] MEDS: ONDANSETRON 4 MG/2 ML VIAL IVP ONE (08:39)
[2024-10-22] MEDS ORDERED: SUCCINYLCHOLINE CHLORIDE 200 MG/10 ML VIAL IV ONE (09:08)
[2024-10-22] MEDS ORDERED: fentaNYL (PF) 50 MCG/ML 2 ML AMP ONE (09:08)
[2024-10-22] MEDS ORDERED: LIDOCAINE 1% INJ 10MG/ML (20 ML MDV) ONE (09:08)
[2024-10-22] MEDS ORDERED: NEOSTIGMINE 1 MG/ML 10 ML VIAL ONE (09:08)
[2024-10-22] MEDS ORDERED: ROCURONIUM 10 MG/ML (5 ML VIAL) IV ONE (09:08)
[2024-10-22] MEDS ORDERED: PROPOFOL 10 MG/ML 20 ML VIAL IV ONE (09:08)
[2024-10-22] MEDS ORDERED: PHENYLEPHRINE-0.9% NACL SYG 1,000 MCG/10 ML SYRINGE ONE (09:08)
[2024-10-22] MEDS ORDERED: MIDAZOLAM 2 MG/2 ML VIAL ONE (09:08)
[2024-10-22] MEDS ORDERED: GLYCOPYRROLATE 0.2 MG/ML 2 ML VIAL ONE (09:08)
[2024-10-22] MEDS: GENTAMICIN 120 MG in SODIUM CHLORIDE 0.9% 100 ML IVPB PRN (09:27)
--- NOTE | 2024-10-22 10:38 | P.OP ---
Date of Procedure: 10/22/24 Preoperative Diagnosis: BPH, urinary retention Postoperative Diagnosis: Same Procedure(s) Performed: TURP (bipolar) Anesthesia: TREVOR Surgeon: Mark Saleh Estimated Blood Loss (ml): 100 Pathology: other (Prostate adenoma) Condition: stable Disposition: PACU Indications for Procedure: This is a 54-year-old male with history of BPH, urinary retention. He has failed multiple trial of voids. Underwent a cystoscopy that showed evidence of an occlusive prostate. Of note he has a history of chronically elevated PSA, has underwent 2 previous prostate biopsies and a prostate MRI that was within normal limits, last biopsy was this month. Discussed with him an option of a TURP. He is aware of the risk which include but not limited to bleeding, infection, urinary incontinence, retrograde ejaculation. Discussed the risk of persistent retention even with a TURP. He understood all risk and agreed to proceed Operative Findings: Trilobar hyperplasia Description of Procedure: Patient brought the operating, general anesthesia was induced. He was prepped and draped in sterile fashion placed in a dorsolithotomy position. Resectoscope with a 25 Sami sheath was inserted per urethra, cystoscopy was performed which showed a trilobar hyperplasia with an occlusive prostate. Using the bipolar resectoscope the prostate was resected down to the surgical capsule, point of bleeding was controlled with cautery. Resection was carried distal to the bladder neck and staying proximal to the Veru. Repeat cystoscopy in the end of the resection showed no evidence of bleeding, injury to the bladder or the ureteral orifice ease. The prostate fossa was open. At this time the resectoscope was withdrawn and a 22 Sami Vega was placed with a return of clear urine, the catheter was irrigated to clear. Patient tolerated procedure well secondary covering stable condition
[2024-10-22 10:43] VITALS: TEMP 97
[2024-10-22 12:03] VITALS: BP 149/86; PULSE 75; RESP 17
== END 2024-10-22 12:28 | disposition home or self-care (01) ==
LOC: OR 08:00
PROVIDERS: ATTEND Urology
DX: N41.0 Acute prostatitis (principal); N41.1 Chronic prostatitis; N40.1 Benign prostatic hyperplasia with lower urinary tract symptoms; E78.5 Hyperlipidemia, unspecified; R33.8 Other retention of urine; F41.9 Anxiety disorder, unspecified; F32.A Depression, unspecified; K21.9 Gastro-esophageal reflux disease without esophagitis; Z85.820 Personal history of malignant melanoma of skin; Z85.828 Personal history of other malignant neoplasm of skin; Z79.82 Long term (current) use of aspirin; Z79.899 Other long term (current) drug therapy
CPT/HCPCS: 52601; 88305; J2250; J0330; J1100; J2710; J0690; J2405; J2003; J3010; J1580; J2704; J2371; J1596

== ENCOUNTER 2024-10-22 20:31 | Emergency (ER) | payer BC ==
[2024-10-22 20:38] VITALS: RESP 18
[2024-10-22 22:23] LABS: RBC,Urine >182 /hpf (0-5); WBC,Urine >182 /hpf (0-5)
[2024-10-22 22:25] LABS: Color,Urine Dark Red
[2024-10-22] MEDS: HYDROmorphone 1 MG/ML 1 ML SYRINGE IM STA (22:27)
--- NOTE | 2024-10-22 22:34 | ED ---
Male Urogenital HPI - General Source: patient, RN notes reviewed Mode of arrival: ambulatory Limitations: no limitations - History of Present Illness Onset/Timin -: days(s) recent surgery Reports: blood in urine <Michoacano Ta - Last Filed: 10/23/24 00:02> <Chiquita Chavira - Last Filed: 10/23/24 02:20> - General Chief complaint: Urogenital Stated complaint: Blood in Raox[facility] Surgery Time Seen by Provider: 10/22/24 20:46 - History of Present Illness Initial comments: This is a 54-year-old male with history of BPH presenting for blood in his [place] catheter starting earlier today. Patient states he underwent a TURP with Dr. Paulson earlier today at 0900 with subsequent dark red blood noted in his [place] catheter, urethral pain and cessation of urine noted. Patient denies use of blood thinners. Denies fever, chills, mid back pain, significant abdominal pain, N/V/D. (Michoacano Ta) - Related Data Home Medications Medication Instructions Recorded Confirmed Aspirin EC [Ecotrin Low Dose] 81 mg PO DAILY 10/11/17 10/22/24 Atorvastatin [Lipitor] 10 mg PO W/SUPPER 10/11/17 10/22/24 Escitalopram [Lexapro] 5 mg PO PC-LUNCH 09/21/24 10/22/24 Ibuprofen [Advil] 400 mg PO DAILY PRN 09/21/24 10/22/24 Omeprazole 20 mg PO PC-LUNCH 09/21/24 10/22/24 Tamsulosin [Flomax] 0.4 mg PO W/SUPPER 09/21/24 10/22/24 Allergies Allergy/AdvReac Type Severity Reaction Status Date / Time No Known Allergies Allergy Verified 10/22/24 20:38 Review of Systems ROS Other: All systems not noted in ROS Statement are negative. <Michoacano Ta - Last Filed: 10/23/24 00:02> ROS Other: All systems not noted in ROS Statement are negative. <Chiquita Chavira - Last Filed: 10/23/24 02:20> ROS Statement: Those systems with pertinent positive or pertinent negative responses have been documented in the HPI. Past Medical History Past Medical History: Cancer, GERD/Reflux, Hyperlipidemia, Prostate Disorder Additional Past Medical History / Comment(s): Enlarged prostate, hx melanoma/skin cancer, bladder not emptying, recent hospitalization for acute renal failure/urinary retention, has [place] catheter. History of Any Multi-Drug Resistant Organisms: None Reported Past Surgical History: No Surgical Hx Reported, Prostate Surgery Additional Past Surgical History / Comment(s): Melanoma removed from cheek, transrectal ultrasound and biopsy. Past Anesthesia/Blood Transfusion Reactions: No Reported Reaction Past Psychological History: Anxiety, Depression Smoking Status: Never smoker Past Alcohol Use History: Occasional Past Drug Use History: None Reported - Past Family History Father Family Medical History: Hypertension Additional Family Medical History / Comment(s): Kidney transplant. Mother Family Medical History: AFIB Additional Family Medical History / Comment(s): afib <Michoacano Ta - Last Filed: 10/23/24 00:02> General Exam Limitations: no limitations General appearance: alert, in no apparent distress Head exam: Present: atraumatic, normocephalic, normal inspection Eye exam: Present: normal appearance, PERRL, EOMI. Absent: scleral icterus, conjunctival injection, periorbital swelling ENT exam: Present: normal exam, mucous membranes moist Neck exam: Present: normal inspection. Absent: tenderness, meningismus, lymphadenopathy Respiratory exam: Present: normal lung sounds bilaterally. Absent: respiratory distress, wheezes, rales, rhonchi, stridor Cardiovascular Exam: Present: regular rate, normal rhythm, normal heart sounds. Absent: systolic murmur, diastolic murmur, rubs, gallop, clicks GI/Abdominal exam: Present: soft, tenderness (Mild suprapubic tenderness), normal bowel sounds. Absent: distended, guarding, rebound, rigid exam: Present: other (Dark red blood noted in [place] catheter tubing and bag) Extremities exam: Present: normal inspection, full ROM, normal capillary refill. Absent: tenderness, pedal edema, joint swelling, calf tenderness Back exam: Present: normal inspection. Absent: CVA tenderness (R), CVA tenderness (L) Neurological exam: Present: alert, oriented X3, CN II-XII intact Psychiatric exam: Present: normal affect, normal mood Skin exam: Present: warm, dry, intact, normal color. Absent: rash <Michoacano Ta - Last Filed: 10/23/24 00:02> Course Vital Signs 10/22/24 20:36 Temperature 98.1 F Pulse Rate 109 H Respiratory 18 Rate Blood Pressure 146/84 O2 Sat by Pulse 96 Oximetry Procedures <CelyMichoacano - Last Filed: 10/23/24 00:02> - Procedures Initial comment: [place] catheter flushed copiously by RN with a large number of blood clots noted. [place] tubing patent following procedure with patient noting significant relief. Bleeding persists. (Michoacano Ta) Medical Decision Making <Michoacano Ta - Last Filed: 10/23/24 00:02> - Lab Data Result diagrams: 10/22/24 23:58 10/22/24 23:58 <Chiquita Chavira - Last Filed: 10/23/24 02:20> - Medical Decision Making Was pt. sent in by a medical professional or institution (, PA, COURT ORDERLY, urgent care, hospital, or skilled nursing...) When possible be specific @ -[No] Did you speak to anyone other than the patient for history (EMS, parent, family, police, friend...)? What history was obtained from this source @ -[No] Did you review nursing and triage notes (agree or disagree)? Why? @ -[I reviewed and agree with nursing and triage notes] Were old charts reviewed (outside hosp., previous admission, EMS record, old EKG, old radiological studies, urgent care reports/EKG's, skilled nursing records)? Report findings @ -Reviewed urology note from 10/22/2024 detailing TURP procedure performed earlier today. Differential Diagnosis (chest pain, altered mental status, abdominal pain women, abdominal pain men, vaginal bleeding, weakness, fever, dyspnea, syncope, headache, dizziness, GI bleed, back pain, seizure, CVA, palpatations, mental health, musculoskeletal)? @ -Differential Abdominal Pain Men: Appendicitis, cholecystitis, diverticulosis, ischemic bowel, pancreatitis, hepatitis, UTI, gastroenteritis, AAA, incarcerated hernia, bowel obstruction, constipation, inflammatory bowel, hepatitis, peptic ulcer disease, splenic infarction, perforated viscus, testicular torsion, this is not meant to be an all-inclusive list EKG interpreted by me (3pts min.). @ -Not done X-rays interpreted by me (1pt min.). @ -[None done] CT interpreted by me (1pt min.). @ -[None done] U/S interpreted by me (1pt. min.). @ -Bladder scan: 324 mL What testing was considered but not performed or refused? (CT, X-rays, U/S, labs)? Why? @ -[None] What meds were considered but not given or refused? Why? @ -[None] Did you discuss the management of the patient with other professionals (professionals i.e. Dr., PA, COURT ORDERLY, lab, RT, psych nurse, social media marketer, greens tier, teacher, first officer, case briefer)? Give summary @ -Spoke to Dr. Saleh who advised patient to increase fluid intake and follow- up outpatient. Was smoking cessation discussed for >3mins.? @ -[No] Was critical care preformed (if so, how long)? @ -[No] Were there social determinants of health that impacted care today? How? (Homelessness, low income, unemployed, alcoholism, drug addiction, garcia sportation, low edu. Level, literacy, decrease access to med. care, skilled nursing, rehab)? @ -[No] Was there de-escalation of care discussed even if they declined (Discuss DNR or withdrawal of care, Hospice)? DNR status @ -[No] What co-morbidities impacted this encounter? (DM, HTN, Smoking, COPD, CAD, Cancer, CVA, ARF, Chemo, Hep., AIDS, mental health diagnosis, sleep apnea, morbid obesity)? @ -[None] Was patient admitted / discharged? Hospital course, mention meds given and route, prescriptions, significant lab abnormalities, going to OR and other pertinent info. @ -[hospital course] Undiagnosed new problem with uncertain prognosis? @ -[No] Drug Therapy requiring intensive monitoring for toxicity (Heparin, Nitro, Insulin, Cardizem)? @ -[No] Were any procedures done? @ -[place] catheter flushed copiously by RN with a large number of blood clots noted. See procedure note Diagnosis/symptom? @ -Gross hematuria following TURP Acute, or Chronic, or Acute on Chronic? @ -Acute Uncomplicated (without systemic symptoms) or Complicated (systemic symptoms)? @ -Uncomplicated Side effects of treatment? @ -[No] Exacerbation, Progression, or Severe Exacerbation? @ -[No] Poses a threat to life or bodily function? How? (Chest pain, [place], [place], pneumonia, PE, COPD, DKA, ARF, appy, cholecystitis, CVA, Diverticulitis, Homicidal, Suicidal, threat to staff... and all critical care pts) @ -[No] (Michoacano Ta) Was patient admitted / discharged? Hospital course, mention meds given and route, prescriptions, significant lab abnormalities, going to OR and other pertinent info. @ -Discharge. 54-year-old male presenting for gross hematuria status post TURP this morning. Patient signed out to me by Michoacano Ta PA-C pending IV fluids, lab work, and disposition. He spoke with Dr. Saleh who recommended discharge with outpatient follow-up tomorrow. [place] was flushed and is draining appropriately. Appropriate return precautions and follow-up care discussed. Case was discussed with the ED attending Dr. Aquino. Undiagnosed new problem with uncertain prognosis? @ -No Drug Therapy requiring intensive monitoring for toxicity (Heparin, Nitro, Insulin, Cardizem)? @ -No Were any procedures done? @ -No Diagnosis/symptom? @ -Gross hematuria status post TURP Acute, or Chronic, or Acute on Chronic? @ -Acute Uncomplicated (without systemic symptoms) or Complicated (systemic symptoms)? @ -Uncomplicated Side effects of treatment? @ -No Exacerbation, Progression, or Severe Exacerbation? @ -No Poses a threat to life or bodily function? How? (Chest pain, USA, [place], pneumonia, PE, COPD, DKA, ARF, appy, cholecystitis, CVA, Diverticulitis, Homicidal, Suicidal, threat to staff... and all critical care pts) @ -No (Chiquita Chavira) - Lab Data Lab Results 10/22/24 10/22/24 10/22/24 Range/Units 21:52 23:58 23:58 WBC 12.93 H (4.50-10.00) 10*3/uL RBC 4.39 L (4.40-5.60) 10*6/uL Hgb 13.5 (13.0-17.0) g/dL Hct 39.4 L (39.6-50.0) % MCV 89.7 (80.0-97.0) fL MCH 30.8 (27.0-32.0) pg MCHC 34.3 (32.0-37.0) g/dL Plt Count 232 (140-440) 10*3/uL MPV 9.5 (9.5-12.2) fL Immature Gran % (Auto) 0.5 % Neutrophils % 78.4 % Lymphocytes % 14.3 % Monocytes % 6.6 % Eosinophils % 0.0 % Basophils % 0.2 % Immature Gran # 0.06 H (0.00-0.04) 10*3/uL Neutrophils # 10.15 H (1.80-7.70) 10*3/uL Lymphocytes # 1.85 (0.90-5.00) 10*3/uL Monocytes # 0.85 (0.20-1.00) 10*3/uL Eosinophils # 0.00 L (0.04-0.35) 10*3/uL Basophils # 0.02 (0.00-0.10) 10*3/uL Sodium 139 (137-145) mmol/L Potassium 4.3 (3.5-5.1) mmol/L Chloride 101 (98-107) mmol/L Carbon Dioxide 27 (22-30) mmol/L Anion Gap 11 mmol/L BUN 10 (9-20) mg/dL Creatinine 0.84 (0.66-1.25) mg/dL Est GFR (CKD-EPI)AfAm >90 (>60 ml/min/1.73 sqM) Est GFR (CKD-EPI)NonAf >90 (>60 ml/min/1.73 sqM) Glucose 99 (74-99) mg/dL Calcium 10.1 (8.4-10.2) mg/dL Total Bilirubin 0.9 (0.2-1.3) mg/dL AST 29 (17-59) U/L ALT 27 (4-49) U/L Alkaline Phosphatase 67 (38-126) U/L Total Protein 6.6 (6.3-8.2) g/dL Albumin 4.1 (3.5-5.0) g/dL Urine Color Dark Red Urine Appearance Bloody (Clear) Urine RBC >182 H (0-5) /hpf Urine WBC >182 H (0-5) /hpf Disposition Is patient prescribed a controlled substance at d/c from ED?: No <Michoacano Ta - Last Filed: 10/23/24 00:02> Is patient prescribed a controlled substance at d/c from ED?: No Time of Disposition: 02:12 <FanChiquita - Last Filed: 10/23/24 02:20> Clinical Impression: Gross hematuria Disposition: HOME SELF-CARE Condition: Fair Instructions (If sedation given, give patient instructions): Hematuria (ED), Transurethral Prostatectomy (DC) Referrals: Adama Shields DO [Primary Care Provider] - 1-2 days Mark Saleh MD [STAFF PHYSICIAN] - 1-2 days
[2024-10-23] MEDS: SODIUM CHLORIDE 0.9% 1,000 ML IV STA (00:17)
[2024-10-23 00:52] LABS: Basophils # (A) 0.02 10*3/uL (0.00-0.10); Basophils % (A) 0.2 %; Eosinophils # (A) 0.00 10*3/uL (0.04-0.35); Eosinophils % (A) 0.0 %; HCT 39.4 % (39.6-50.0); HGB 13.5 g/dL (13.0-17.0); Lymphocytes # (A) 1.85 10*3/uL (0.90-5.00); Lymphocytes % (A) 14.3 %; MCH 30.8 pg (27.0-32.0); MCHC 34.3 g/dL (32.0-37.0); MCV 89.7 fL (80.0-97.0); Monocytes # (A) 0.85 10*3/uL (0.20-1.00); Monocytes % (A) 6.6 %; Neutrophils # (A) 10.15 10*3/uL (1.80-7.70); Neutrophils % (A) 78.4 %; Platelet Count 232 10*3/uL (140-440); RBC 4.39 10*6/uL (4.40-5.60); RDW 12.7 % (11.5-14.5); WBC 12.93 10*3/uL (4.50-10.00)
[2024-10-23 01:06] LABS: ALT 27 U/L (4-49); AST 29 U/L (17-59); African American GFR (CKD) >90 (>60 ml/min/1.73 sqM); Albumin 4.1 g/dL (3.5-5.0); Alkaline Phosphatase 67 U/L (38-126); Anion Gap 11 mmol/L; Blood Urea Nitrogen 10 mg/dL (9-20); Calcium 10.1 mg/dL (8.4-10.2); Carbon Dioxide 27 mmol/L (22-30); Chloride 101 mmol/L (98-107); Glucose 99 mg/dL (74-99); Non-African American GFR(CKD) >90 (>60 ml/min/1.73 sqM); Potassium 4.3 mmol/L (3.5-5.1); Sodium 139 mmol/L (137-145); Total Protein 6.6 g/dL (6.3-8.2)
[2024-10-23 03:04] VITALS: BP 137/93; PULSE 91; TEMP 97.8
== END 2024-10-23 02:47 | disposition home or self-care (01) ==
LOC: EC 20:31
DX: R31.0 Gross hematuria (principal)
CPT/HCPCS: 51798; 36415; 80053; 85025; 81001; 87086; 99284; 96372; 51702; 96360; J1171

== ENCOUNTER 2024-10-23 05:38 | Emergency (ER) | payer BC ==
--- NOTE | 2024-10-23 06:25 | ED ---
General Adult HPI - General Chief complaint: Urogenital Stated complaint: Cath issues Time Seen by Provider: 10/23/24 05:55 Source: patient, RN notes reviewed Mode of arrival: ambulatory Limitations: no limitations - History of Present Illness Initial comments: 54-year-old male presents emergency department chief complaint of [place] catheter issues. Patient states he was seen here few hours ago, complaints states his catheter has clogged up of blood again. He is not draining. Patient states he feels pressure in his abdomen patient had a recent TURP procedure by and is scheduled to call for follow-up today. Patient denies any fever chills no other associated symptoms. - Related Data Home Medications Medication Instructions Recorded Confirmed Aspirin EC [Ecotrin Low Dose] 81 mg PO DAILY 10/11/17 10/22/24 Atorvastatin [Lipitor] 10 mg PO W/SUPPER 10/11/17 10/22/24 Escitalopram [Lexapro] 5 mg PO PC-LUNCH 09/21/24 10/22/24 Ibuprofen [Advil] 400 mg PO DAILY PRN 09/21/24 10/22/24 Omeprazole 20 mg PO PC-LUNCH 09/21/24 10/22/24 Tamsulosin [Flomax] 0.4 mg PO W/SUPPER 09/21/24 10/22/24 Allergies Allergy/AdvReac Type Severity Reaction Status Date / Time No Known Allergies Allergy Verified 10/23/24 05:46 Review of Systems ROS Statement: Those systems with pertinent positive or pertinent negative responses have been documented in the HPI. ROS Other: All systems not noted in ROS Statement are negative. Past Medical History Past Medical History: Cancer, GERD/Reflux, Hyperlipidemia, Prostate Disorder Additional Past Medical History / Comment(s): Enlarged prostate, hx melanoma/skin cancer, bladder not emptying, recent hospitalization for acute renal failure/urinary retention, has [place] catheter. History of Any Multi-Drug Resistant Organisms: None Reported Past Surgical History: No Surgical Hx Reported, Prostate Surgery Additional Past Surgical History / Comment(s): Melanoma removed from cheek, transrectal ultrasound and biopsy. Past Anesthesia/Blood Transfusion Reactions: No Reported Reaction Past Psychological History: Anxiety, Depression Smoking Status: Never smoker Past Alcohol Use History: Occasional Past Drug Use History: None Reported - Past Family History Father Family Medical History: Hypertension Additional Family Medical History / Comment(s): Kidney transplant. Mother Family Medical History: AFIB Additional Family Medical History / Comment(s): afib General Exam Limitations: no limitations General appearance: alert, in no apparent distress Head exam: Present: atraumatic, normocephalic, normal inspection Respiratory exam: Present: normal lung sounds bilaterally. Absent: respiratory distress, wheezes, rales, rhonchi, stridor Cardiovascular Exam: Present: regular rate, normal rhythm, normal heart sounds. Absent: systolic murmur, diastolic murmur, rubs, gallop, clicks GI/Abdominal exam: Present: soft, tenderness, normal bowel sounds. Absent: distended, guarding, rebound, rigid Back exam: Absent: CVA tenderness (R), CVA tenderness (L) Neurological exam: Present: alert, oriented X3 Course Vital Signs 10/23/24 10/23/24 05:46 07:02 Temperature 98.1 F 97.9 F Pulse Rate 117 H 90 Respiratory 18 18 Rate Blood Pressure 125/88 123/79 O2 Sat by Pulse 96 99 Oximetry Medical Decision Making - Medical Decision Making Was pt. sent in by a medical professional or institution (, PA, EDUCATION DIRECTOR, urgent care, hospital, or halfway...) When possible be specific @ -No Did you speak to anyone other than the patient for history (EMS, parent, family, police, friend...)? What history was obtained from this source @ -No Did you review nursing and triage notes (agree or disagree)? Why? @ -I reviewed and agree with nursing and triage notes Were old charts reviewed (outside hosp., previous admission, EMS record, old EKG, old radiological studies, urgent care reports/EKG's, halfway records)? Report findings @ -No old charts were reviewed Differential Diagnosis (chest pain, altered mental status, abdominal pain women, abdominal pain men, vaginal bleeding, weakness, fever, dyspnea, syncope, headache, dizziness, GI bleed, back pain, seizure, CVA, palpatations, mental health, musculoskeletal)? @ -Hematuria, [place] catheter complication status post TURP EKG interpreted by me (3pts min.). @ -None X-rays interpreted by me (1pt min.). @ -None done CT interpreted by me (1pt min.). @ -None done U/S interpreted by me (1pt. min.). @ -None done What testing was considered but not performed or refused? (CT, X-rays, U/S, labs)? Why? @ -None What meds were considered but not given or refused? Why? @ -None Did you discuss the management of the patient with other professionals (professionals i.e. , PA, EDUCATION DIRECTOR, lab, RT, psych nurse, psychologist social, skein tier, teacher, strike operations officer, correctional case manager)? Give summary @ -No Was smoking cessation discussed for >3mins.? @ -No Was critical care preformed (if so, how long)? @ -No Were there social determinants of health that impacted care today? How? (Homelessness, low income, unemployed, alcoholism, drug addiction, transportation, low edu. Level, literacy, decrease access to med. care, residential, rehab)? @ -No Was there de-escalation of care discussed even if they declined (Discuss DNR or withdrawal of care, Hospice)? DNR status @ -No What co-morbidities impacted this encounter? (DM, HTN, Smoking, COPD, CAD, Cancer, CVA, ARF, Chemo, Hep., AIDS, mental health diagnosis, sleep apnea, morbid obesity)? @ -None Was patient admitted / discharged? Hospital course, mention meds given and route, prescriptions, significant lab abnormalities, going to OR and other pertinent info. @ -Discharge patient had [place] catheter irrigated, patient was observed for several hours with no recurrence of the catheter. Patient will follow-up with urology today. Undiagnosed new problem with uncertain prognosis? @ -No Drug Therapy requiring intensive monitoring for toxicity (Heparin, Nitro, Insulin, Cardizem)? @ -No Were any procedures done? @ -No Diagnosis/symptom? @ -Hematuria, [place] catheter complication Acute, or Chronic, or Acute on Chronic? @ -Acute Uncomplicated (without systemic symptoms) or Complicated (systemic symptoms)? @ -Complicated Side effects of treatment? @ -No Exacerbation, Progression, or Severe Exacerbation? @ -No Poses a threat to life or bodily function? How? (Chest pain, [place], [place], pneumonia, PE, COPD, DKA, ARF, appy, cholecystitis, CVA, Diverticulitis, Homicidal, Suicidal, threat to staff... and all critical care pts) @ -No Disposition Clinical Impression: Urinary retention, Gross hematuria, [place] catheter in place Disposition: HOME SELF-CARE Condition: Stable Instructions (If sedation given, give patient instructions): Hematuria (ED) Additional Instructions: Please return to the Emergency Department if symptoms worsen or any other concerns. Is patient prescribed a controlled substance at d/c from ED?: No Referrals: Adama Shields DO [Primary Care Provider] - 1-2 days Mark Saleh MD [STAFF PHYSICIAN] - 1-2 days Time of Disposition: 07:46
[2024-10-23 08:02] VITALS: BP 136/72; PULSE 89; RESP 20; TEMP 98.2
== END 2024-10-23 08:06 | disposition home or self-care (01) ==
LOC: EC 05:38
DX: Z46.6 Encounter for fitting and adjustment of urinary device (principal); R31.0 Gross hematuria; R33.8 Other retention of urine
CPT/HCPCS: 99283